=== PATIENT | male | born 1975 | race Caucasian/White ===

== ENCOUNTER 2017-08-05 20:13 | Emergency (ER) | payer OTHER ==
[~2017-08-05] VITALS: Ht 172.7 cm; Wt 63.5 kg
[2017-08-06] MEDS ORDERED: KETO10TA2 PO (07:08)
[2017-08-06] MEDS ORDERED: TAMS0.4C PO (07:08)
== END 2017-08-06 07:23 ==
LOC: ER 20:13
DX: R10.32 Left lower quadrant pain (principal)

== ENCOUNTER 2017-08-08 18:15 | Inpatient (IN) | payer OTHER ==
[~2017-08-08] VITALS: Ht 172.7 cm; Wt 63.5 kg
[~2017-08-08 18:15] MED LIST: KETO10TA2 PO; TAMS0.4C PO
== END 2017-08-10 10:43 | disposition home or self-care (01) | DRG 670 ==
LOC: ER 18:15 → SEC-K 08-09 08:33 → MEDI 08-09 08:33
PROVIDERS: Urology
PROC: BT1FZZZ Fluoroscopy of Left Kidney, Ureter and Bladder (ICD-10-PCS; 2017-08-10)
PROC: 0TC78ZZ Extirpation of Matter from Left Ureter, Via Natural or Artificial Opening Endoscopic (ICD-10-PCS; principal; 2017-08-10 08:00)
DX: N20.1 Calculus of ureter (principal)

== ENCOUNTER → 2018-05-02 | Outpatient (CLI) | payer OTHER | END | disposition home or self-care (01) | LOC: RAD 501 08:22 | DX: N20.0 Calculus of kidney (principal) ==